=== PATIENT | male | born 1955 | race African-American/Black ===

== ENCOUNTER 2017-02-09 10:23 | Emergency (ER) | payer OTHER ==
[2017-02-09 12:11] VITALS: BP 132/101
== END 2017-02-09 12:11 | disposition home or self-care (01) ==
LOC: ED 10:23
DX: S82.65XD Nondisplaced fracture of lateral malleolus of left fibula, subsequent encounter for closed fracture with routine healing (principal); X58.XXXD Exposure to other specified factors, subsequent encounter
CPT/HCPCS: Q0092